=== PATIENT | female | born 1985 | race Caucasian/White ===

== ENCOUNTER 2016-06-05 06:57 | Emergency (ER) | payer BC ==
[~2016-06-05] VITALS: Ht 160 cm; Wt 54.1 kg
[~2016-06-05 06:57] MED LIST: AMOXICILLIN500 MG PO; Feosol PO; KEFLEX500 MG PO; MACRODANTIN100 MG PO; MICRONOR0.35 MG PO; Motrin PO; NATALCARE RX1 TABLET PO; NOHOMEMEDS; PERCOCET 5/31 TABLET PO; PRENATAL TABLE1 EAC3 PO; TYLENOL WITH C1 EACH PO; ZOFRAN ODT4 MG PO; ZOFRAN4 MG PO
[2016-06-05 07:42] LABS: HEMATOCRIT 37.4 % (36.0-46.0); MCH 28.2 PG (29.0-34.0); MCHC 34.5 G/DL (30.0-36.0); MCV 81.7 FL (83-99); MEAN PLAT.VOLUME 9.5 uM^3 (9.5-12.4); PLATELET COUNT 216 K/uL (156-360); RBC DIS.WIDTH-CV 12.9 % (11.8-14.6); RBC DIS.WIDTH-SD 37.7 % (39-53); RED BLOOD COUNT 4.58 M/uL (3.80-5.20); WHITE BLOOD COUNT 5.6 K/uL (4.1-10.2)
[2016-06-05 07:45] LABS: EOSINOPHIL (%) 0 % (0-5); IMMATURE GRANULOCYTE (%) 0.2 % (0.0-0.7); IMMATURE GRANULOCYTE COUNT 0.1 K/uL; LYMPHOCYTE COUNT 0.5 K/uL (1.0-2.8); MONOCYTE (%) 18.6 % (3-12); MONOCYTE COUNT 1.1 K/uL (0-0.8); NEUTROPHIL (%) 72.7 % (45-76); NEUTROPHIL COUNT 4.1 K/uL (1.8-6.4)
[2016-06-05 08:25] LABS: ANION GAP 8 MEQ/L (2-14); CHLORIDE 102 MEQ/L (99-109); POTASSIUM 3.9 MEQ/L (3.7-5.4); SAMPLE HEMOLYSIS CHECK 0; SAMPLE ICTERIC CHECK 0; SAMPLE LIPEMIA CHECK 0; SODIUM 132 MEQ/L (136-147); TOTAL BILIRUBIN 0.5 MG/DL (0.0-1.0)
[2016-06-05 08:31] LABS: ALKALINE PHOSPHATASE 40 IU/L (3-129); GFR ESTIMATE (CALCULATED) > 59 mL/min/; GLUCOSE 93 mg/dL (70-99); UREA NITROGEN (BUN) 8 mg/dL (9-23)
[2016-06-05 08:33] LABS: QUANTITATIVE HCG < 4.0 MIU/ML
[2016-06-05 08:47] LABS: TROP-I INTERPRETATION NEGATIVE; TROPONIN-I < 0.01 ng/mL (0.0-0.30)
[2016-06-05] MEDS ORDERED: FIORICET WI1 CAPSULE PO (09:21)
[2016-06-05 09:28] VITALS: BP 105/73
== END 2016-06-05 09:38 | disposition home or self-care (01) ==
LOC: EME 06:57
PROVIDERS: Emergency Medicine
DX: G43.909 Migraine, unspecified, not intractable, without status migrainosus (principal); M79.1 Myalgia; Z88.6 Allergy status to analgesic agent
CPT/HCPCS: 71010; 80053; 81003; 84484; 84702; 85025; 93005; 99281; 99285; J1885; J7030

== ENCOUNTER 2017-01-03 16:09 | Emergency (ER) | payer BC ==
[~2017-01-03] VITALS: Ht 160 cm; Wt 53.5 kg
[~2017-01-03 16:09] MED LIST changes: +FIORICET WI1 CAPSULE PO
[2017-01-03 16:37] LABS: MCH 28.3 PG (29.0-34.0); MCHC 33.3 G/DL (30.0-36.0); MCV 84.9 FL (83-99); MEAN PLAT.VOLUME 9.3 uM^3 (9.5-12.4); PLATELET COUNT 278 K/uL (156-360); RBC DIS.WIDTH-CV 12.8 % (11.8-14.6); RBC DIS.WIDTH-SD 38.7 % (39-53); RED BLOOD COUNT 4.24 M/uL (3.80-5.20); WHITE BLOOD COUNT 6.2 K/uL (4.1-10.2)
[2017-01-03 16:45] LABS: CHLORIDE 106 mEq/L (99-109); POTASSIUM 4.4 mEq/L (3.7-5.4); SODIUM 140 mEq/L (136-147)
[2017-01-03 16:47] LABS: GLUCOSE 105 mg/dL (70-99)
[2017-01-03 16:49] LABS: ANION GAP 8 MEQ/L (2-14); TOTAL BILIRUBIN 0.1 mg/dL (0.0-1.0)
[2017-01-03 16:51] LABS: ALKALINE PHOSPHATASE 37 IU/L (3-129); GFR ESTIMATE (CALCULATED) > 59 mL/min/
[2017-01-03 16:52] LABS: UREA NITROGEN (BUN) 9 mg/dL (9-23)
[2017-01-03 16:54] LABS: LIPASE 47 U/L (1.0-51.0)
[2017-01-03 17:00] LABS: QUANTITATIVE HCG < 4.0 MIU/ML
[2017-01-03 17:12] LABS: ADD MIUA? NO; BILIRUBIN NEGATIVE; BLOOD NEGATIVE; COLOR STRAW ((YELLOW)); GLUCOSE (STRIP) NEGATIVE; KETONES NEGATIVE; LEUKOCYTES NEGATIVE; NITRITE NEGATIVE; PROTEIN (STRIP) NEGATIVE; SPECIFIC GRAVITY 1.009 (1.000-1.030); UROBILINOGEN 0.2 MG/DL (0.2-1.0)
[2017-01-03] MEDS ORDERED: FLEXERIL10 MG PO (17:19)
[2017-01-03] MEDS ORDERED: LIDODERM 5% P1 PATCH TD (17:19)
[2017-01-03] MEDS ORDERED: MOTRIN800 MG PO (17:19)
[2017-01-03 17:27] VITALS: BP 133/94
== END 2017-01-03 17:28 | disposition home or self-care (01) ==
LOC: EME 16:09
PROVIDERS: Nurse Practitioner Family
DX: S39.012A Strain of muscle, fascia and tendon of lower back, initial encounter (principal); K21.9 Gastro-esophageal reflux disease without esophagitis; Z87.442 Personal history of urinary calculi; Z87.891 Personal history of nicotine dependence
CPT/HCPCS: 80053; 81003; 83690; 84702; 85027; 99281; 99284